=== PATIENT | male | born 2000 | race Caucasian/White ===

== ENCOUNTER → 2019-03-27 12:50 | Outpatient (BNVA) | payer OTHER, SELFPAY | PROVIDERS: PCP Nurse Practitioner Family; Visit Provider Counselor Professional | DX: F84.0 Autistic disorder (principal); F41.1 Generalized anxiety disorder | CPT/HCPCS: 90834 ==

== ENCOUNTER → 2019-05-14 10:29 | Outpatient (BNVA) | payer OTHER, SELFPAY | PROVIDERS: PCP Nurse Practitioner Family; Visit Provider Counselor Professional | DX: F41.1 Generalized anxiety disorder (principal); F84.0 Autistic disorder; F34.1 Dysthymic disorder | CPT/HCPCS: 90834 ==

== ENCOUNTER → 2019-12-03 09:16 | Outpatient (BNVA) | payer MEDICARE, SELFPAY | PROVIDERS: PCP Nurse Practitioner Family; Visit Provider Counselor Professional | DX: F84.0 Autistic disorder (principal); F34.1 Dysthymic disorder; F41.1 Generalized anxiety disorder | CPT/HCPCS: 90832 ==

== ENCOUNTER → 2020-02-11 07:24 | Outpatient (BNVA) | payer MEDICARE, SELFPAY | PROVIDERS: Visit Provider Nurse Practitioner Psychiatric/Mental Health | DX: F84.0 Autistic disorder (principal); F34.1 Dysthymic disorder; F41.1 Generalized anxiety disorder | CPT/HCPCS: 99212 ==

== ENCOUNTER → 2020-04-09 07:09 | Outpatient (BNVA) | payer MEDICARE, SELFPAY | PROVIDERS: Visit Provider Nurse Practitioner Psychiatric/Mental Health | DX: F84.0 Autistic disorder (principal); F34.1 Dysthymic disorder; F41.1 Generalized anxiety disorder | CPT/HCPCS: 99213 ==

== ENCOUNTER → 2020-07-04 09:39 | Outpatient (BNVA) | payer MEDICARE, SELFPAY | PROVIDERS: Visit Provider Nurse Practitioner Psychiatric/Mental Health | DX: F84.0 Autistic disorder (principal); F34.1 Dysthymic disorder; F41.1 Generalized anxiety disorder | CPT/HCPCS: 99214 ==

== ENCOUNTER → 2020-09-26 07:22 | Outpatient (BNVA) | payer MEDICARE, SELFPAY | PROVIDERS: Visit Provider Nurse Practitioner Psychiatric/Mental Health | DX: F84.0 Autistic disorder (principal); F34.1 Dysthymic disorder; F41.1 Generalized anxiety disorder | CPT/HCPCS: 99214 ==

== ENCOUNTER → 2020-10-24 07:24 | Outpatient (BNVA) | payer MEDICARE, SELFPAY | PROVIDERS: Visit Provider Nurse Practitioner Psychiatric/Mental Health | DX: F84.0 Autistic disorder (principal); F34.1 Dysthymic disorder; F41.1 Generalized anxiety disorder | CPT/HCPCS: 99214 ==

== ENCOUNTER → 2020-11-28 07:24 | Outpatient (BNVA) | payer MEDICARE, OTHER, SELFPAY | PROVIDERS: Visit Provider Nurse Practitioner Psychiatric/Mental Health | DX: F41.1 Generalized anxiety disorder (principal); F84.0 Autistic disorder; F34.1 Dysthymic disorder | CPT/HCPCS: 99214 ==

== ENCOUNTER → 2021-01-04 15:07 | Outpatient (BNVA) | payer MEDICARE, SELFPAY | PROVIDERS: Visit Provider Registered Nurse Neonatal Intensive Care | DX: Z20.822 Contact with and (suspected) exposure to COVID-19 (principal) | CPT/HCPCS: 87635 ==

== ENCOUNTER 2021-01-06 07:30 | Emergency (ER) | payer MEDICARE, MEDICAID, SELFPAY ==
--- NOTE | 2021-01-06 07:33 | ECG_ITS ---
[facility] Test Date: 2021-01-06 Pat Name: Hector Petit Department: Room: Gender: Male Judicial Clerk: : 2000 Requested By: Keshia West Order Number: [id number] Taye MD: Zac Wooten M.D. Measurements Intervals [place] Rate: 109 P: 72 IA: 135 QRS: 75 QRSD: 114 T: 58 QT: 310 QTc: 418 Interpretive Statements SINUS TACHYCARDIA Heavy baseline artifact. Further interpretation is not possible. Need to repeat the study Electronically Signed On 01-06-2021 22:11:30 CABINET BUILDER by Zac Wooten M.D. [id number]
--- NOTE | 2021-01-06 07:33 | XR_ITS ---
WS: [id number] Exam: XR chest 1V portable [id number] Date/Time of Exam: 01/06/2021 7:33 AM Reason For Exam: chest pain/COVID No priors. There appears to be infiltrate in the left retrocardiac region. Remaining lung hutson are clear. No p leural effusions. The mediastinum and bony thorax are intact. Normal heart size. Recommendations: A detailed PA and lateral chest x-ray would be suggested for follow-up. XR/XR chest 1V portable [id number] IMPRESSION: 1. Findings suspicious for left lower lobe infiltrate in the retrocardiac regio n.
[2021-01-06 07:50] VITALS: BP 108/70; PULSE 103; RESP 20; TEMP 37; O2SAT 96; BMI 21.1
--- NOTE | 2021-01-06 09:12 | ED_ITS ---
HPI - Chest Pain General: Chief Complaint: Chest Pain Stated Complaint: Tightness in chest began yesterday Time Seen by Provider: 01/06/21 08:03 Source: patient Mode of arrival: ambulatory Limitations: no limitations History of Present Illness: HPI narrative: Patient is a 20-year-old male with a history of autism here for complaints of chest pain. Patient tells me he was diagnosed with COVID and just learned of his positive results today. He states over the past several days he has had rhinorrhea, sore throat, headache, diarrhea, shortness of breath with exertion, and substernal chest pain. He has no other known medical conditions. No fevers. MD complaint: chest pain Onset (ago): day(s) Timing of current episode: constant Prior episodes: No Pain location: substernal Pain radiation: none Severity: mild Quality: aching Relieving factors: nothing Exacerbating factors: nothing Associated symptoms: Deny fever(s) Treatment prior to arrival: none Risk Factors: Coronary artery disease risk factors: none Thoracic aortic dissection risk factors: none Review of Systems Const: Denies: fever(s), chills, body aches, fatigue or malaise PFS ED PFSH: Medical History (Updated 10/24/20 @ 16:17 by Mine Frye) Autistic disorder Dysthymic disorder Generalized anxiety disorder Psychiatric care Course Vital Signs: Vital signs: Vital Signs Temperature 98.6 F 01/06/21 07:50 Pulse Rate 103 H 01/06/21 07:50 Respiratory Rate 20 H 01/06/21 07:50 Blood Pressure 108/70 01/06/21 07:50 Pulse Oximetry 96 01/06/21 07:50 Discharge Plan Discharge Prescriptions: No Action ibuprofen 200 mg capsule 600 mg PO Q6H PRNRF: 0 fluoxetine [Prozac] 20 mg capsule 20 mg PO QAM Qty: 30 RF: 6 fluoxetine [Prozac] 10 mg capsule 10 mg PO QAM Qty: 30 RF: 6 Coding Level of Care Code ED Ornamental Painter for Adela Ballard
[2021-01-06 09:15] LABS: Basophils % 0.2 %; Eosinophils % 0.2 %; Hematocrit 45.6 % (42.0-52.0); Hemoglobin 15.6 g/dL (11.7-16.6); Lymphocytes # 1.8 10^3/uL (0.8-4.8); Lymphocytes % 36.6 %; Mean Corpuscular HGB Conc 34.2 g/dL (30.0-36.0); Mean Corpuscular Hemoglobin 29.4 pg (28.0-34.0); Mean Platelet Volume 9.7 fL (7.4-10.4); Monocytes # 0.4 10^3/uL (0.2-0.9); Monocytes % 7.8 %; Neutrophils # 2.76 10^3/uL (1.8-7.7); Neutrophils % 54.8 %; Nucleated Red Blood Cells % 0 %; Platelet Count 236 10^3/cmm (130-400); Red Cell Distribution Width 11.8 % (12.1-15.1)
--- NOTE | 2021-01-06 09:20 | ED_ITS ---
Documented by User: MATTHEW Serrano 01/06/21 12:53 HPI - COVID General: Chief Complaint: Chest Pain Stated Complaint: Tightness in chest began yesterday Time Seen by Provider: 01/06/21 08:03 Source: patient Mode of arrival: ambulatory Limitations: no limitations Triage information: Has fever, cough or shortness of breath . No known COVID + exposure last 14 days History of Present Illness: HPI Narrative: Patient is a 20-year-old male with a history of autism here for complaints of chest pain. Patient tells me he was diagnosed with COVID and just learned of his positive results today. He states over the past several days he has had rhinorrhea, sore throat, headache, diarrhea, shortness of breath with exertion, and substernal chest pain. He has no other known medical conditions. No fevers. MD complaint: known COVID positive Prior covid testing: yes, results known Prior testing date: 01/04/21 COVID 19 common symptoms: positive non-productive cough, headache(s), throat pain, diarrhea and chest tightness; negative fever(s), chills, fatigue, body aches, nausea or vomiting COVID 19 other sytmptoms: positive chest pain Onset (ago): day(s) Severity: mild Treatment prior to arrival: none COVID Results: SARS-CoV-2 RNA (RT-PCR) Detected (NOT DETECTED) A 01/04/21 15:07 01/04/21 Review of Systems Const: Denies: fever(s), chills, body aches, fatigue or malaise Eyes: Denies: change in vision or blurry vision ENMT: Reports: throat pain and nasal discharge; Denies: ear or mastoid pain or epistaxis Card: Reports: chest pain and dyspnea on exertion; Denies: palpitations, irregular heart rhythm, edema, swelling of feet/ankles, lightheadedness, syncope, pre-syncope, orthopnea, leg pain with exertion or acrocyanosis Resp: Reports: non-productive cough and pain on inspiration; Denies: wheezing, hemoptysis or chest congestion GI: Reports: diarrhea; Denies: abdominal pain, nausea or vomiting Musc: Denies: neck pain, back pain, extremity pain or joint pain Skin/Breast: Denies: rash Neuro: Reports: headache(s); Denies: numbness in extremities, weakness in extremities, sensory changes or dizziness PFS ED PFSH: Medical History Autistic disorder Dysthymic disorder Generalized anxiety disorder Psychiatric care Physical Exam Const: COMMON NORMALS: no acute distress, average body habitus, patient oriented x3, no limitations, healthy appearing, alert and well nourished GENERAL APPEARANCE: cooperative ORIENTATION/CONSCIOUSNESS: Yes awake, Yes oriented to person, Yes oriented to place and Yes oriented to time HENMT: COMMON NORMALS: normocephalic and atraumatic HEAD & SCALP: normocephalic and atraumatic Neck/C-Spine: COMMON NORMALS: full ROM, no lymphadenopathy and no meningeal signs Chest: COMMONS NORMALS: normal inspection of the chest OTHER: TTP sternal chest Resp: COMMON NORMALS: normal respiratory effort and clear to auscultation bilaterally AUSCULTATION: clear to auscultation bilaterally Cardio: COMMON NORMALS: regular rate and regular rhythm RATE: regular rate RHYTHM: regular rhythm GI: COMMON NORMALS: Normal to inspection, nondistended, normoactive bowel sounds present, Soft to palpation, non-tender, No hepatosplenomegaly present and no masses PALPATION: Yes Soft to palpation and Yes No hepatosplenomegaly present Extremity: COMMON NORMALS: normal to inspection, capillary refill normal, no joint enlargement, no clubbing, cyanosis or edema, no calf tenderness and no pedal edema Neuro: COMMON NORMALS: patient oriented x3 SENSORIUM/ORIENTATION: Yes alert, Yes oriented to person, Yes oriented to place and Yes oriented to time MENINGEAL SIGNS: Yes no meningeal signs Skin: COMMON NORMALS: no rashes or lesions noted GENERAL SKIN EXAM: no rashes or lesions noted TRAUMA: no lacerations or abrasions Course Vital Signs: Vital signs: Vital Signs Temperature 98.6 F 01/06/21 07:50 Pulse Rate 103 H 01/06/21 07:50 Respiratory Rate 20 H 01/06/21 07:50 Blood Pressure 108/70 01/06/21 07:50 Pulse Oximetry 96 01/06/21 07:50 MDM - COVID MDM Narrative: Medical decision making narrative: Patient is a nice 20-year-old male who presents to ED today for COVID-19 symptoms including rhinorrhea, sore throat, headache, diarrhea, chest pain, shortness of breath with exertion. Vital signs are stable. Labs are unremarkable. He qualifies for MCA secondary to neurodevelopmental disorder/autism. Patient does verbalize wanting to receive this therapy. Patient is his own guardian and is able to make this decision competently. Dr. Easton has also spoken to patient and agrees with plan/evaluation. Lab Data: Labs: Lab Results 01/06/21 01/06/21 01/06/21 08:43 08:43 08:43 WBC 5.0 10^3/uL 10^3/ uL (4.0-10.0) RBC 5.30 10^6/uL 10^6 /uL (4.1-5.3) Hgb 15.6 g/dL g/dL (11.7-16.6) Hct 45.6 % % (42.0-52.0) MCV 86.0 fl fl (80-94) MCH 29.4 pg pg (28.0-34.0) MCHC 34.2 g/dL g/dL (30.0-36.0) RDW 11.8 % L % (12.1-15.1) Plt Count 236 10^3/cmm 10^3 /cmm (130-400) MPV 9.7 fL fL (7.4-10.4) Neut % (Auto) 54.8 % % Lymph % (Auto) 36.6 % % Ripley % (Auto) 7.8 % % Eos % (Auto) 0.2 % % Baso % (Auto) 0.2 % % Neut # (Auto) 2.76 10^3/uL 10^3 /uL (1.8-7.7) Lymph # (Auto) 1.8 10^3/uL 10^3/ uL (0.8-4.8) Ripley # (Auto) 0.4 10^3/uL 10^3/ uL (0.2-0.9) Eos # (Auto) 0.0 10^3/uL 10^3/ uL (0.0-0.8) Baso # (Auto) 0.0 10^3/uL 10^3/ uL (0.0-0.1) Nucleated RBC % (a uto) 0 % % Nucleated RBCs # 0.0 /100WBC /100W BC Sodium 137 mmol/L mmol/L (136-145) Potassium 3.6 mmol/L mmol/L (3.5-5.1) Chloride 97 mmol/L L mmol/ L (98-107) Carbon Dioxide 27 mmol/L mmol/L (22-29) Anion Gap 16.6 (5-19) BUN 13 mg/dL mg/dL (6-20) Creatinine 0.7 mg/dL mg/dL (0.7-1.2) GFR Calculation 141.0 mL/min H mL /min (90-130) Glucose 99 mg/dL mg/dL (65-115) Calculated Osmolal ity 284 mOsm/kg L mOs m/kg (285-295) Calcium 8.4 mg/dL L mg/dL (8.5-10.5) Total Bilirubin 0.6 mg/dL mg/dL (0.15-1.2) AST 32 U/L U/L (0-40) ALT 19 U/L U/L (0-41) Alkaline Phosphata se 57 IU/L IU/L (40-130) Troponin T Gen 5 n g/L 6 ng/L ng/L (0-15) NT-Pro-B Natriuret Pep 5 pg/mL pg/mL (0-125) Total Protein 7.3 g/dL g/dL (6.6-8.7) Albumin 4.0 g/dL g/dL (3.5-5.2) Globulin 3.3 g/dL g/dL (1.3-4.6) COVID Results: SARS-CoV-2 RNA (RT-PCR) Detected (NOT DETECTED) A 01/04/21 15:07 01/04/21 Monoclonal Antibody - ED Inclusion/Exclusion Criteria age >/= 12 years, weight >/= 40kg /88lbs, symptom onset less than 10 days ago and + direct Sars-Cov-2 test less than 7-10 days ago Other medical condition or factor that puts patient at risk for severe COVID (neurodevelopmental disorder-autism) not requiring hospitalization, not requiring oxygen (if not chronically on oxygen) and no increase oxygen requirement (if chronically on oxygen) Patient education patient/family/caregiver received/reviewed fact sheet, Emergency Use Authorization/unapproved drug status discussed with patient/family/caregiver, alternatives to this treatment discussed with patient/family/caregiver, risks and benefits of medication reviewed with patient/family/caregiver, patient/family/caregiver given opportunity for questions, which were answered and patient consents to receiving Monoclonal Antibody Treatment Plan for treatment Meets criteria for Monoclonal Antibody infusion Date of symptom(s) onset: 01/01/21 Where are the positive COVID test results, if positive?: Resulted in [facility] Ordering Monoclonal Antibody infusion for today Discharge Plan Discharge Patient Disposition: Home Clinical Impression: COVID-19 Condition: Stable Prescriptions: No Action ibuprofen 200 mg capsule 600 mg PO Q6H PRNRF: 0 fluoxetine [Prozac] 20 mg capsule 20 mg PO QAM Qty: 30 RF: 6 fluoxetine [Prozac] 10 mg capsule 10 mg PO QAM Qty: 30 RF: 6 Discharge Orders: Discharge ED (Routine); Ordered 01/06/21 Ordered By: Keshia West Patient Instructions: COVID-19 (Coronavirus Disease 2019) (ED) Sign Out Sign Out Data: Patient Sign Out occurred on 01/06/21 at 11:06. Patient's care was discussed, and care was transferred from to Zohaib aEston DO. Coding Level of Care Code ED Refrigeration Plant Operator for Chg Fwd Exam Comprehensive Documented by User: Zohaib Easton DO 01/06/21 11:37 HPI - COVID General: Chief Complaint: Chest Pain Stated Complaint: Tightness in chest began yesterday Time Seen by Provider: 01/06/21 08:03 History of Present Illness: HPI Narrative: 18-year-old male initially seen by Keshia West. Reviewed chart discussed with Keshia. Also interviewed patient no changes from Keshia is a history of present illness. He has been consented for monoclonal antibodies and wishes to proceed I discussed with him he had no further questions. Onset of symptoms 01/10/21. MD complaint: known COVID positive Prior testing date: 01/04/21 COVID 19 common symptoms: positive fever(s), chills, cough, non-productive cough, dyspnea, body aches, headache(s), loss of sense of smell and/or taste, throat pain, nasal congestion, nausea and diarrhea; negative vomiting COVID Results: SARS-CoV-2 RNA (RT-PCR) Detected (NOT DETECTED) A 01/04/21 15:07 01/04/21 Review of Systems Const: Reports: fever(s), chills and body aches ENMT: Reports: throat pain and nasal congestion Resp: Reports: dyspnea and non-productive cough GI: Reports: nausea and diarrhea; Denies: vomiting Neuro: Reports: headache(s) PFSH ED PFSH: Medical History Autistic disorder Dysthymic disorder Generalized anxiety disorder Psychiatric care Physical Exam Const: COMMON NORMALS: no acute distress GENERAL APPEARANCE: cooperative and comfortable ORIENTATION/CONSCIOUSNESS: Yes awake, Yes oriented to person, Yes oriented to place and Yes oriented to time HENMT: COMMON NORMALS: normocephalic, atraumatic and hearing grossly normal bilaterally HEAD & SCALP: normocephalic and atraumatic Neck/C-Spine: COMMON NORMALS: no JVD Resp: AUSCULTATION: wheezes expiratory wheezes (Scant) Cardio: COMMON NORMALS: no JVD, regular rate, regular rhythm and No murmurs present (Cardio) RATE: regular rate RHYTHM: regular rhythm GI: COMMON NORMALS: Soft to palpation and No hepatosplenomegaly present AUSCULTATION: Yes normoactive bowel sounds PALPATION: Yes Soft to palpation, No Tenderness to palpation present (GI), No Guarding due to palpation present (GI) and Yes No hepatosplenomegaly present Extremity: COMMON NORMALS: normal to inspection, capillary refill normal, no clubbing, cyanosis or edema, no calf tenderness and no pedal edema Neuro: SENSORIUM/ORIENTATION: Yes oriented to person, Yes oriented to place and Yes oriented to time Skin: COMMON NORMALS: no rashes or lesions noted GENERAL SKIN EXAM: no rashes or lesions noted Course Vital Signs: Vital signs: Vital Signs Temperature 98.6 F 01/06/21 07:50 Pulse Rate 103 H 01/06/21 07:50 Respiratory Rate 20 H 01/06/21 07:50 Blood Pressure 108/70 01/06/21 07:50 Pulse Oximetry 96 01/06/21 07:50 MDM - COVID MDM Narrative: Medical decision making narrative: Chart reviewed and patient discussed with midlevel. Agree with assessment and plan. We are making arrangements for monoclonal antibodies today. Have discussed the head housekeeper. Lab Data: Labs: Lab Results 01/06/21 01/06/21 01/06/21 08:43 08:43 08:43 WBC 5.0 10^3/uL 10^3/ uL (4.0-10.0) RBC 5.30 10^6/uL 10^6 /uL (4.1-5.3) Hgb 15.6 g/dL g/dL (11.7-16.6) Hct 45.6 % % (42.0-52.0) MCV 86.0 fl fl (80-94) MCH 29.4 pg pg (28.0-34.0) MCHC 34.2 g/dL g/dL (30.0-36.0) RDW 11.8 % L % (12.1-15.1) Plt Count 236 10^3/cmm 10^3 /cmm (130-400) MPV 9.7 fL fL (7.4-10.4) Neut % (Auto) 54.8 % % Lymph % (Auto) 36.6 % % Ripley % (Auto) 7.8 % % Eos % (Auto) 0.2 % % Baso % (Auto) 0.2 % % Neut # (Auto) 2.76 10^3/uL 10^3 /uL (1.8-7.7) Lymph # (Auto) 1.8 10^3/uL 10^3/ uL (0.8-4.8) Ripley # (Auto) 0.4 10^3/uL 10^3/ uL (0.2-0.9) Eos # (Auto) 0.0 10^3/uL 10^3/ uL (0.0-0.8) Baso # (Auto) 0.0 10^3/uL 10^3/ uL (0.0-0.1) Nucleated RBC % (a uto) 0 % % Nucleated RBCs # 0.0 /100WBC /100W BC Sodium 137 mmol/L mmol/L (136-145) Potassium 3.6 mmol/L mmol/L (3.5-5.1) Chloride 97 mmol/L L mmol/ L (98-107) Carbon Dioxide 27 mmol/L mmol/L (22-29) Anion Gap 16.6 (5-19) BUN 13 mg/dL mg/dL (6-20) Creatinine 0.7 mg/dL mg/dL (0.7-1.2) GFR Calculation 141.0 mL/min H mL /min (90-130) Glucose 99 mg/dL mg/dL (65-115) Calculated Osmolal ity 284 mOsm/kg L mOs m/kg (285-295) Calcium 8.4 mg/dL L mg/dL (8.5-10.5) Total Bilirubin 0.6 mg/dL mg/dL (0.15-1.2) AST 32 U/L U/L (0-40) ALT 19 U/L U/L (0-41) Alkaline Phosphata se 57 IU/L IU/L (40-130) Troponin T Gen 5 n g/L 6 ng/L ng/L (0-15) NT-Pro-B Natriuret Pep 5 pg/mL pg/mL (0-125) Total Protein 7.3 g/dL g/dL (6.6-8.7) Albumin 4.0 g/dL g/dL (3.5-5.2) Globulin 3.3 g/dL g/dL (1.3-4.6) COVID Results: SARS-CoV-2 RNA (RT-PCR) Detected (NOT DETECTED) A 01/04/21 15:07 01/04/21 Discharge Plan Discharge Patient Disposition: Home Clinical Impression: COVID-19 Condition: Stable Prescriptions: No Action ibuprofen 200 mg capsule 600 mg PO Q6H PRNRF: 0 fluoxetine [Prozac] 20 mg capsule 20 mg PO QAM Qty: 30 RF: 6 fluoxetine [Prozac] 10 mg capsule 10 mg PO QAM Qty: 30 RF: 6 Discharge Orders: Discharge ED (Routine); Ordered 01/06/21 Ordered By: Keshia West Patient Instructions: COVID-19 (Coronavirus Disease 2019) (ED) Sign Out Sign Out Data: Patient Sign Out occurred on 01/06/21 at 11:06. Patient's care was discussed, and care was transferred from to Zohaib L Horstman, DO. Coding Level of Care Code ED Refrigeration Plant Operator for Chg Fwd Exam Comprehensive
[2021-01-06 09:31] LABS: Troponin T (5th) Once 6 ng/L (0-15)
[2021-01-06 09:39] LABS: Alanine Aminotransferase 19 U/L (0-41); Alkaline Phosphatase 57 IU/L (40-130); Anion Gap 16.6 (5-19); Aspartate Amino Transferase 32 U/L (0-40); Blood Urea Nitrogen 13 mg/dL (6-20); Calcium 8.4 mg/dL (8.5-10.5); Carbon Dioxide 27 mmol/L (22-29); Chloride 97 mmol/L (98-107); Globulin 3.3 g/dL (1.3-4.6); Glucose 99 mg/dL (65-115); NT Pro B Type Natriuretic Pept 5 pg/mL (0-125); Osmolality Calculated 284 mOsm/kg (285-295); Potassium 3.6 mmol/L (3.5-5.1); Sodium 137 mmol/L (136-145); Total Bilirubin 0.6 mg/dL (0.15-1.2); Total Protein 7.3 g/dL (6.6-8.7)
[2021-01-06 10:19] LABS: Slide Review Slide Review Perform
--- NOTE | 2021-01-06 10:54 | DCPLANNER ---
learning and development manager was asked to schedule an out patient monoclonal antibody infusion. learning and development manager called centralized scheduling and gave centralized scheduling patients information to get the infusion scheduled.
== END 2021-01-06 12:36 | disposition home or self-care (01) ==
PROVIDERS: Physician Assistant; Emergency Provider Family Medicine
DX: U07.1 COVID-19 (principal); F84.0 Autistic disorder
CPT/HCPCS: 71045; 80053; 83880; 84484; 85025; 93005; 96365; 99281

== ENCOUNTER 2021-01-06 12:36 | Outpatient (CLI) | payer MEDICARE, MEDICAID, SELFPAY ==
[2021-01-06 13:00] VITALS: BP 113/72; PULSE 70; RESP 18; TEMP 36.7; O2SAT 96; BMI 21.7
[2021-01-06 13:33] VITALS: BP 111/69; PULSE 84; RESP 18; TEMP 36.6; O2SAT 94
[2021-01-06 14:42] VITALS: BP 116/73; PULSE 78; RESP 18; TEMP 36.6; O2SAT 97
== END 2021-01-06 12:37 | disposition home or self-care (01) ==
PROVIDERS: Visit Provider Physician Assistant
DX: U07.1 COVID-19 (principal)
CPT/HCPCS: 96365

== ENCOUNTER → 2021-02-27 07:45 | Outpatient (BNVA) | payer MEDICARE, MEDICAID, SELFPAY | PROVIDERS: Visit Provider Nurse Practitioner Psychiatric/Mental Health | DX: F84.0 Autistic disorder (principal); F34.1 Dysthymic disorder; F41.1 Generalized anxiety disorder | CPT/HCPCS: 99214 ==

== ENCOUNTER → 2021-07-10 15:10 | Outpatient (BNVA) | payer MEDICARE, MEDICAID, SELFPAY | PROVIDERS: Visit Provider Nurse Practitioner Psychiatric/Mental Health | DX: F84.0 Autistic disorder (principal); F34.1 Dysthymic disorder; F41.1 Generalized anxiety disorder | CPT/HCPCS: 99214 ==

== ENCOUNTER 2024-09-29 00:28 | Emergency (ER) | payer BC, SELFPAY ==
[2024-09-29] VITALS (7 sets, daily range): BP systolic 112–148; BP diastolic 76–88; PULSE 82–98; RESP 18; TEMP 36.6; O2SAT 97–100; BMI 21.4
--- OUTSIDE RECORDS SUMMARY | 2024-09-29 00:44 | XMS_ITS | Clinical Summary ---
Author Organization [facility] Address [address] [place]: Epic Prelude ADT [place] [address] Care Team Providers Care Hemmer Chainstitch Name Role Phone Stevan Devlin MD Primary Care Provider [phone] Allergies No known active allergies Medications FLUoxetine (PROzac) 20 mg tabletIndicatio ns:Mild episode of recurrent major depressive disorder Take 1.5 Tablets (30 mg) by mouth daily. 90 Tablet 1 04/13/2024 Active hydrOXYzine HCL (ATARAX) 10 mg tabletIndicatio ns:MEHDI (generalized anxiety disorder) Take 1 Tablet (10 mg) by mouth 3 times daily as needed for Anxiety. 60 Tablet 1 04/13/2024 Active Active Problems Problem Noted Date Diagnosed Date Mild episode of recurrent major depressive disor nita 03/02/2024 Acne vulgaris 10/06/2016 Environmental tobacco smoke exposure 03/20/2015 PDD (pervasive developmental disorder) 1 Phonological disorder 07/23/2010 MEHDI (generalized anxiety disorder) 07/23/2010 Anxiety state, unspecified 06/29/2010 Autism 05/04/2010 Encounters Date Type Department Care Team Description 08/07/2024 External Device Data [facility] ABSTRACTION Provider, Abstract 07/17/2024 External Device Data [facility] ABSTRACTION Provider, Abstract 07/13/2024 External Device Data [facility] ABSTRACTION Provider, Abstract 07/11/2024 External Device Data [facility] ABSTRACTION Provider, Abstract 07/10/2024 External Device Data [facility] ABSTRACTION Provider, Abstract from Last 3 Months Immunizations Immunization Administration Dates Next Due (INFANRIX)(6 WKS-6 YRS) DIPT HERIA, TETANUS TOXOIDS, AND ACCELLULAR PERTUSSIS VACCINE (DTAP), 0.5 ML IM 06/12/2003,06/15/2000,06/17/1999,03/18,1998 (IPOL)(6 WKS AND UP) POLIOVI MARLENY VACCINE, INACTIVATED (IPV), 3 DOSE, SUBCUT OR IM 06/12/2003,10/14/1999,03/18/1999,12/17 (M-M-R II/PRIORIX)(12 MO UP) MEASLES, MUMPS AND RUBELLA VIRUS VACCINE, 0.5 ML IM/SUBCUT 06/12/2003,10/14/1999 (VARIVAX)(12 MOS UP)VARICELL A VIRUS VACCINE (PF) 0.5 ML, SUB CUT 04/22/2003 HIB, Unspecified Formulation 06/15/2000, 06/17/1999,03/18/1999,12/17 Hepatitis B Vaccine 06/17/1999,1998,1998 Meningococcal A Conjugate Va ccine IM VFC 11/08/2012 Meningococcal A Conjugate Vaccine IM 10/06/2016 Tdap Vaccine > 7 Yo IM VFC 11/08/2012 Family History Medical History Relation Name Comments Alcohol abuse Father Zhen Drug Abuse Father Zhen Other Father Zhen unknown Healthy Maternal Grandfather Healthy Maternal Grandmother ADHD Maternal Uncle Preston Depression Mother Renetta Other Mother Renetta borderline pers onality disorder Other Other 1 Gerald ODD Anxiety Other 2 Albino PTSD Other Paternal Grandfather unknown Other Paternal Grandmother unknown Breast Cancer Neg Hx Colon Cancer Neg Hx Relation Name Status Comments Father Zhen Alive Maternal Grandfather Maternal Grandmother Maternal Uncle Preston Alive Mother Renetta Alive Other 1 Gerald Alive Other 2 Albino Alive Paternal Grandfather Paternal Grandmother Social History Tobacco Use Types Packs/Day Years Used Date Smoking Tobacco: Never Smokeless Tobacco: Never Tobacco Cessation:Counseling Given: No Alcohol Use Standard Drinks/Week Comments No 0 (1 standard drink = 0.6 oz pur e alcohol) Sex and Gender Information Value Date Recorded Sex Assigned at Not on file Legal Sex Male 2:40 AM CUT IN WORKER Gender Identity Not on file Sexual Orientation Not on file Last Filed Vital Signs Vital Sign Reading Time Taken Comments Blood Pressure 130/80 04/13/2024 8:58 AM CUT IN WORKER Pulse 65 04/13/2024 8:58 AM CUT IN WORKER Temperature 36.8 C (98.2 F) 04/13/2024 8:58 AM CUT IN WORKER Respiratory Rate 16 04/13/2024 8:58 AM CUT IN WORKER Oxygen Saturation 98% 04/13/2024 8:58 AM CUT IN WORKER Inhaled Oxygen Concentration - - Weight 74.1 kg (163 lb 6.4 oz) 04/13/2024 8:58 A M CUT IN WORKER Height 182.9 cm (6') 04/13/2024 8:58 AM CUT IN WORKER Body Mass Index 22.16 04/13/2024 8:58 AM CUT IN WORKER Plan of Treatment Health Maintenance Due Date Last Done Comments HPV VACCINES (1 - Male 3-dos e series) 2013 DTAP/TDAP/TD VACCINES (7 - T d or Tdap) 11/08/2022 11/08/2012, 06/12/2003, 06/15/2000, Additional history exists Preventative Visit- Commercial 02/22/2024 0 10/06/2016, 12/05/2012, 11/08/2012 INFLUENZA VACCINE (#1) 2024 , 04/17/2018, 04/17/2018 HEPATITIS B VACCINES Completed 06/17/1999, 06/17/1999, 1998, Additional history exists Insurance BCBS OUT OF STATE Care Teams Hemmer Chainstitch Relationship Specialty Start Date End Date Stevan Devlin MD [address] [place] [id number] PCP - General Family Practice 04/17/18
[2024-09-29 01:28] LABS: Respiratory Syncytial Virus Ce NEGATIVE (Negative); SARS-CoV-2 PCR NEGATIVE (Negative)
[2024-09-29 01:58] LABS: Hematocrit 46.7 % (37-53); Hemoglobin 16.40 g/dL (11.27-16.99); Mean Corpuscular HGB Conc 35.1 g/dL (30-55); Mean Corpuscular Hemoglobin 30.3 pg (27-33); Mean Corpuscular Volume 86.2 fl (82-101); Nucleated Red Blood Cells % 0 %; Platelet Count 178 10^3/cmm (157-399); Red Blood Count 5.42 10^6/uL (3.85-5.65); White Blood Count 5.31 10^3/uL (3.29-11.43)
[2024-09-29 02:19] LABS: Alanine Aminotransferase 33 U/L (0-41); Albumin Level 4.2 g/dL (3.5-5.2); Alkaline Phosphatase 82 U/L (40-130); Anion Gap 15.1 (5-19); Aspartate Amino Transferase 27 U/L (0-40); Blood Urea Nitrogen 9 mg/dL (6-20); Calcium 8.9 mg/dL (8.5-10.5); Carbon Dioxide 26 mmol/L (22-29); Chloride 97 mmol/L (98-107); Creatinine Clr Calc Pharmacy 150.1932; Globulin 3.0 g/dL (1.3-4.6); Glucose 108 mg/dL (65-115); Osmolality Calculated 277 mOsm/kg (285-295); Potassium 4.1 mmol/L (3.5-5.1); Sodium 134 mmol/L (136-145); Total Protein 7.2 g/dL (6.6-8.7)
[2024-09-29 02:48] LABS: Glucose Urine UA Negative (Normal); Nitrate Urine Negative (Negative); Specific Gravity, Urine 1.010 (1.005-1.030)
[2024-09-29 02:52] LABS: Add Urine Microscopic? YES
--- NOTE | 2024-09-29 02:57 | ED_ITS ---
HPI - General Adult 2 General: Chief complaint: General Medical Stated complaint: shaking chills head throbbing, 2 days urine brown Time Seen by Provider: 09/29/24 00:43 Source: patient Mode of arrival: ambulatory Limitations: no limitations History of Present Illness: Patient was given 3 days of chills, increased thirst fever and not feeling well overall. Having some bodyaches. No nausea vomiting diarrhea. No abdominal pain no cough. No LOC no syncope, no paresthesias. Patient reports his urine was getting dark he was just continuing to feel worse and getting lightheaded when he stood up. Related Data Home Medications ?Medication ?Instructions ?Recorded ?Confirmed ibuprofen 200 mg capsule 600 mg PO Q6H PRN 03/06/19 0 03/26/22 Previous Rx's ?Medication ?Instructions ?Recorded fluoxetine 10 mg capsule (Prozac) 10 mg PO QAM #30 cap s 03/25/22 fluoxetine 20 mg capsule (Prozac) 20 mg PO QAM #30 cap s 03/25/22 Allergies Allergy/AdvReac Type Severity Reaction Status Date / Time No Known Allergies Allergy Verified 03/26/22 10:51 Review of Systems 2 General: Reports: 10 or more systems reviewed and unremarkable except in HPI and below PFSH ED 2 PFSH: Medical History (Updated 09/29/24 @ 02:59 by Daniel Camejo MD) Generalized anxiety disorder Dysthymic disorder Autistic disorder Physical Exam 2 Const: COMMON NORMALS: no acute distress, average body habitus, patient oriented x3, healthy appearing, alert and well nourished GENERAL APPEARANCE: well kempt and well developed HENMT: COMMON NORMALS: normocephalic, atraumatic and external ears normal; oral mucous membranes not moist (Mucous membranes tacky) HEAD & SCALP: n ormocephalic and atraumatic EXTERNAL EAR: Yes external ears normal Eye: COMMON NORMALS: Equal, round and reactive pupils present, EOMs intact bilaterally and conjunctivae normal CONJUNCTIVA: Yes conjunctivae normal P UPIL: Yes Equal, round and reactive pupils present Neck/C-Spine: COMMON NORMALS: full ROM, no lymphadenopathy and supple Chest: CHEST: Yes Symmetrical chest wall rise and No Surgical scars present (Chest) Resp: COMMON NORMALS: normal respiratory effort, No retractions, No use of accessory muscles and clear to auscultation bilaterally AUSCULTATION: clear to auscultation bilaterally Cardio: COMMON NORMALS: regular rate, regular rhythm, S1 normal heart sound present, S2 normal heart sound present, No gallops present (Cardio), No clicks present (Cardio), No murmurs present (Cardio) and No rub (Cardio) RATE: r egular rate RHYTHM: regular rhythm HEART SOUNDS: S1 normal heart sound present, S2 normal heart sound present and no murmurs PERIPHERAL PULSES: o ther (Radial pulses 2+ and symmetric) GI: COMMON NORMALS: Soft to palpation, non-tender and no masses INSPECTION: No abdominal distension PALPATION: Yes Soft to palpation, No Guarding due to palpation present (GI) and No Rebound tenderness present : COMMON NORMALS: Yes no CVA tenderness BLADDER/KIDNEY EXAM: Yes no CVA tenderness Back/Pelvis: COMMON NORMALS: no CVA tenderness Extremity: COMMON NORMALS: normal to inspection, full ROM, capillary refill normal and no clubbing, cyanosis or edema Neuro: COMMON NORMALS: patient oriented x3 SENSORIUM/ORIENTATION: Yes alert Psych: APPEARANCE: Yes well kempt Skin: COMMON NORMALS: no rashes or lesions noted, no wounds, turgor normal and no jaundice GENERAL SKIN EXAM: no rashes or lesions noted and turgor normal Course 2 Vital Signs: Vital signs: Vital Signs Temperature 98 F 09/29/24 00:37 Pulse Rate 82 09/29/24 02:42 Respiratory Rate 18 09/29/24 00:53 Blood Pressure 148/81 09/29/24 02:42 Pulse Oximetry 97 09/29/24 02:42 [facility] - General Adult Medical Decision Making Patient likely viral illness comes in with dehydration, hyaline cast and ketones in urine along with mildly low sodium and chloride levels. Patient was given 2 L of IV fluid here in the emergency department. Counseled on viral illness and discharged home. Medical Records I reviewed the patient's medical records. Lab Data I reviewed the patient's lab results. 09/29/24 01:50 09/29/24 01:50 Laboratory Results WBC 5.31 10^3/uL (3.29-11.43) 09/29/24 01:50 RBC 5.42 10^6/uL (3.85-5.65) 09/29/24 01:50 Hgb 16.40 g/dL (11.27-16.99) 09/29/24 01:50 Hct 46.7 % (37-53) 09/29/24 01:50 MCV 86.2 fl (82-101) 09/29/24 01:50 MCH 30.3 pg (27-33) 09/29/24 01:50 MCHC 35.1 g/dL (30-55) 09/29/24 01:50 RDW 12.2 % (12.1-15.1) 09/29/24 01:50 Plt Count 178 10^3/cmm (157-399) 09/29/24 01:50 MPV 8.9 fL (7.4-10.4) 09/29/24 01:50 Neut % (Auto) 67.0 % 09/29/24 01:50 Lymph % (Auto) 21.1 % 09/29/24 01:50 [place] % (Auto) 10.9 % 09/29/24 01:50 Eos % (Auto) 0.0 % 09/29/24 01:50 Baso % (Auto) 0.8 % 09/29/24 01:50 Neut # (Auto) 3.56 10^3/uL (1.8-7.7) 09/29/24 01:50 Lymph # (Auto) 1.1 10^3/uL (0.8-4.8) 09/29/24 01:50 [place] # (Auto) 0.6 10^3/uL (0.2-0.9) 09/29/24 01:50 Eos # (Auto) 0.0 10^3/uL (0.0-0.8) 09/29/24 01:50 Baso # (Auto) 0.0 10^3/uL (0.0-0.1) 09/29/24 01:50 Nucleated RBC % (auto) 0 % 09/29/24 01:50 Nucleated RBCs # 0.0 /100WBC 09/29/24 01:50 Sodium 134 mmol/L (136-145) L 09/29/24 01:50 Potassium 4.1 mmol/L (3.5-5.1) 09/29/24 01:50 Chloride 97 mmol/L (98-107) L 09/29/24 01:50 Carbon Dioxide 26 mmol/L (22-29) 09/29/24 01:50 Anion Gap 15.1 (5-19) 09/29/24 01:50 BUN 9 mg/dL (6-20) 09/29/24 01:50 Creatinine 0.8 mg/dL (0.7-1.2) 09/29/24 01:50 GFR Calculation 117.8 mL/min (90-130) 09/29/24 01:50 Glucose 108 mg/dL (65-115) 09/29/24 01:50 Calculated Osmolality 277 mOsm/kg (285-295) L 09/29/24 01:50 Calcium 8.9 mg/dL (8.5-10.5) 09/29/24 01:50 Total Bilirubin 0.9 mg/dL (0.15-1.2) 09/29/24 01:50 AST 27 U/L (0-40) 09/29/24 01:50 ALT 33 U/L (0-41) 09/29/24 01:50 Alkaline Phosphatase 82 U/L (40-130) 09/29/24 01:50 Total Protein 7.2 g/dL (6.6-8.7) 09/29/24 01:50 Albumin 4.2 g/dL (3.5-5.2) 09/29/24 01:50 Globulin 3.0 g/dL (1.3-4.6) 09/29/24 01:50 Urine Color Yellow (Yellow) 09/29/24 02:41 Urine Appearance Cloudy (CLEAR) A 09/29/24 02:41 Urine pH 6.5 (5-7) 09/29/24 02:41 Ur Specific [place] 1.010 (1.005-1.030) 09/29/24 02:41 Urine Protein Negative (Negative) 09/29/24 02:41 Urine Glucose (UA) Negative (Normal) 09/29/24 02:41 Urine Ketones 2+ (Negative) H 09/29/24 02:41 Urine Blood Negative (Negative) 09/29/24 02:41 Urine Nitrate Negative (Negative) 09/29/24 02:41 Urine Bilirubin Negative (Negative) 09/29/24 02:41 Urine Urobilinogen 4.0 mg/dL (Negative) H 09/29/24 02:41 Ur Leukocyte Esterase Negative (Negative) 09/29/24 02:41 Urine RBC 0-2 /hpf (0-2) 09/29/24 02:41 Urine WBC 0-5 /hpf (0-5) 09/29/24 02:41 Ur Squamous Epith Cells 0-5 /hpf (0-5) 09/29/24 02:41 Amorphous Sediment Not Reportable 09/29/24 02:41 Urine Bacteria None seen /hpf (NONE) 09/29/24 02:41 Hyaline Casts 0-4 /lpf H 09/29/24 02:41 Influenza A (PCR) Negative (Negative) 09/29/24 00:46 Influenza Type B (PCR) Negative (Negative) 09/29/24 00:46 RSV (PCR) Negative (Negative) 09/29/24 00:46 SARS-CoV-2 (PCR) Negative (Negative) 09/29/24 00:46 No radiology studies performed this visit Discharge Plan Discharge Patient Disposition: Home Clinical Impression: Viral illness, Acute dehydration Condition: Stable Prescriptions: No Action ibuprofen 200 mg capsule 600 mg PO Q6H PRN fluoxetine [Prozac] 10 mg capsule 10 mg PO QAM Qty: 30 6RF Rx Instructions: Take one capsule every morning fluoxetine [Prozac] 20 mg capsule 20 mg PO QAM Qty: 30 6RF Rx Instructions: Take one capsule every morning Discharge Orders: Discharge ED (Routine); Ordered 09/29/24 Ordered By: Daniel Camejo Discharge Diet: Usual diet Discharge Activity: Increase activity as tolerated Patient Instructions: Dehydration - Adult, Patient Portal & [place] Instructions Activity Restrictions/Additional Instructions: Make sure to stay well-hydrated. Feel free to return to the ER if you are getting worse and need further care. Follow-up with your family doctor or primary care in 1 week or as needed. Print Language: Irish Coding Level of Care Code ED Epic [facility] for Adela Ballard
== END 2024-09-29 03:53 | disposition home or self-care (01) ==
PROVIDERS: Physician Assistant; Emergency Provider Emergency Medicine
DX: B34.9 Viral infection, unspecified (principal); E86.0 Dehydration; Z11.52 Encounter for screening for COVID-19
CPT/HCPCS: 36415; 80053; 81001; 85025; 87637; 96360; 96361; 99284; J7030